=== PATIENT | female | born 1945 | race Caucasian/White ===

== ENCOUNTER 2021-06-01 12:19 | Inpatient (IN) ==
[~2021-06-01 12:19] MED LIST: Norepinephrine 4 MG/254 ML 0.9% NaCL IVC ONE
[2021-06-01] MEDS ORDERED: 0.9 % Sodium Chloride 1,000 ML ONE (12:25)
[2021-06-01] MEDS ORDERED: Isovue-370 500 ML BOTTLE IVP ONE (12:26)
[2021-06-01 12:43] LABS: Hematocrit 48.9 % (35.3-44.9); Hemoglobin 15.7 g/dL (11.5-15.4); Mean Corpuscular HGB Conc 32.1 g/dL (31.6-35.5); Mean Corpuscular Hemoglobin 30.6 pg (28.0-33.3); Mean Corpuscular Volume 95.3 fL (83.0-100.0); Mean Platelet Volume 10.1 fL (9.4-12.4); Platelet Count 212 K/mcL (140-400); Red Blood Count 5.13 M/mcL (3.82-4.97); Red Cell Distribution Width 14.6 % (11.5-14.5); White Blood Count 28.8 K/mcL (4.3-11.1)
[2021-06-01] MEDS: Norepinephrine 4 MG/254 ML IV.SOLN IVC SCH ×5 (12:46→23:38)
[2021-06-01 12:49] LABS: INR 1.5
[2021-06-01 12:52] LABS: Activated Partial Thrombo Time 30.7 Seconds (26.0-36.0)
[2021-06-01 12:59] LABS: Calcium 9.9 mg/dL (8.6-10.3); Potassium 3.7 mEq/L (3.5-5.1)
[2021-06-01 13:04] LABS: Troponin I 6.55 ng/mL (< 0.04)
[2021-06-01] MEDS ORDERED: *HR* Etomidate 20 MG/10 ML AMPUL IVP ONE (13:59)
[2021-06-01] MEDS ORDERED: *HR* Rocuronium Bromide 50 MG/5 ML VIAL IVP ONE (13:59)
[2021-06-01] MEDS ORDERED: Perflutren Lipid Microsphere 1.3 ML in 0.9 % Sodium Chloride 8.7 ML IVP PRN (14:35)
[2021-06-01] MEDS ORDERED: Naloxone 0.4 MG/ML INJ IVP PRN (15:37)
[2021-06-01] MEDS ORDERED: *HR* Heparin 5,000 UNIT/ML VIAL IVP ONE (15:37)
[2021-06-01] MEDS ORDERED: *HR* Heparin 5,000 UNIT/ML VIAL IVP PRN ×2 (15:37)
[2021-06-01] MEDS ORDERED: Artificial Tears SOLN 15 ML BOTTLE BOTH EYES PRN (15:37)
[2021-06-01] MEDS ORDERED: *HR* Norepinephrine 4 MG/4 ML VIAL IVC ONE (15:39)
[2021-06-01] MEDS ORDERED: 0.9 % Sodium Chloride 250 ML ONE (15:39)
[2021-06-01] MEDS ORDERED: 0.9 % Sodium Chloride 1,000 ML IVC SCH (15:45)
[2021-06-01] MEDS ORDERED: Vancomycin 1,750 MG/517.5 ML IV.SOLN IVPB ONE (15:55)
[2021-06-01] MEDS ORDERED: Piperacillin/Tazobactam 3.375 GM in 0.9 % Sodium Chloride Mini Bag 100 ML IVPB SCH (16:00)
[2021-06-01] MEDS ORDERED: Vancomycin (wt based) 1,000 MG VIAL IVPB SCH (16:00)
[2021-06-01] MEDS ORDERED: Budesonide/Formoterol 160/4.5 1 PUFF INH IH ONE (16:09)
[2021-06-01 16:19] LABS: ABG Base Excess -6 mEq/L (-2 to 3); ABG HCO3 20 mEq/L (21-27); ABG Oxygen Saturation 99 % (95-98); ABG PCO2 40 mmHg (35-45); ABG PO2 177 mmHg (85-104); ABG TCO2 21 mEq/L (20-26); Blood Gas Modality ASSIST CONTROL; Blood Gas VT 400 cc
[2021-06-01] MEDS: FentaNYL (PF) 1,000 MCG/100 ML IV.SOLN IVC SCH (16:57)
[2021-06-01] MEDS: 0.9 % Sodium Chloride 1,000 ML IVC SCH ×3 (17:07→20:20)
[2021-06-01] MEDS: Artificial Tears SOLN 15 ML BOTTLE BOTH EYES SCH ×2 (17:22→20:16)
[2021-06-01] MEDS: Piperacillin/Tazobactam 3.375 GM in 0.9 % Sodium Chloride Mini Bag 100 ML IVPB SCH (17:24)
[2021-06-01 17:36] LABS: Red Cell Distribution Width 15.1 % (11.5-14.5)
[2021-06-01] MEDS ORDERED: Ipratropium/Albuterol Neb 3 ML IH PRN (17:36)
[2021-06-01 17:37] LABS: Hematocrit 44.9 % (35.3-44.9); Hemoglobin 13.8 g/dL (11.5-15.4); Mean Corpuscular HGB Conc 30.7 g/dL (31.6-35.5); Mean Corpuscular Hemoglobin 29.8 pg (28.0-33.3); Mean Platelet Volume 10.5 fL (9.4-12.4); Platelet Count 196 K/mcL (140-400); Red Blood Count 4.63 M/mcL (3.82-4.97); White Blood Count 29.3 K/mcL (4.3-11.1)
[2021-06-01] MEDS: Pantoprazole 40 MG VIAL IVP SCH (17:53)
[2021-06-01 18:01] LABS: INR 1.4; Prothrombin Time 16.5 Seconds (9.4-12.1)
[2021-06-01 18:04] LABS: Activated Partial Thrombo Time 31.9 Seconds (26.0-36.0); Heparin anti-factor XA UFH < 0.04 IU/mL (0.30-0.70)
[2021-06-01 18:15] LABS: Albumin 3.3 g/dL (3.5-5.7); Albumin/Globulin Ratio 1.2 (1.1-2.2); Bilirubin,Direct 0.6 mg/dL (0.0-0.2); Bilirubin,Indirect 0.5 mg/dL (0.0-1.0); Bilirubin,Total 1.1 mg/dL (0.3-1.0); Globulin 2.8 g/dL (2.4-3.5); Total Protein 6.1 g/dL (6.4-8.9); Troponin I 8.94 ng/mL (< 0.04)
[2021-06-01] MEDS: Heparin 25,000UNIT/250ML 1/2NS 25,000 UNIT/250 ML IV.SOLN IVC SCH (18:52)
[2021-06-01] MEDS: Budesonide/Formoterol 160/4.5 1 PUFF INH IH SCH (19:30)
[2021-06-01] MEDS: Aspirin 81 MG TAB.CHEW PO SCH (20:17)
[2021-06-01] MEDS: Chlorhexidine Rinse 15 ML MOUTHWASH MM SCH (20:19)
[2021-06-01 20:45] LABS: Bacteria,Urine Few per hpf (None-Few); Bilirubin,Urine Negative (Negative); Blood,Urine Trace (Negative); Clarity,Urine Turbid (Clear); Color,Urine Yellow (Yellow); Glucose,Urine (UA) Normal (Normal); Ketones,Urine Negative (Negative); Leukocyte Esterase,Urine Large (Negative); Mucus,Urine Few per lpf (None-Few); Nitrite,Urine Negative (Negative); PH,Urine 7.5 pH Units (5.0-8.0); Protein,Urine 30 mg/dL (Neg-Trace); Specific Gravity,Urine 1.011 (1.010-1.025); Squamous Epithelial Cell,Urine Few per hpf (None-Few); Urobilinogen,Urine Normal (Normal); WBC,Urine TNTC per hpf (0-3)
[2021-06-01 21:18] LABS: Adenovirus Not Detected (Not Detect); Bordetella Pertussis Not Detected (Not Detect); Chlamydophila pneumoniae Not Detected (Not Detect); Coronavirus 229E Not Detected (Not Detect); Coronavirus HKU1 Not Detected (Not Detect); Coronavirus NL63 Not Detected (Not Detect); Coronavirus OC43 Not Detected (Not Detect); Human Metapneumovirus Not Detected (Not Detect); Human Rhinovirus/Enterovirus Not Detected (Not Detect); Influenza A Subtype 2009 H1 Not Detected (Not Detect); Influenza B Not Detected (Not Detect); Mycoplasma pneumoniae Not Detected (Not Detect); Parainfluenza Virus 1 Not Detected (Not Detect); Parainfluenza Virus 2 Not Detected (Not Detect); Parainfluenza Virus 3 Not Detected (Not Detect); Parainfluenza Virus 4 Not Detected (Not Detect); Respiratory Syncytial Virus Not Detected (Not Detect); SARS-CoV-2 Not Detected (Not Detect)
[2021-06-02] MEDS: Artificial Tears SOLN 15 ML BOTTLE BOTH EYES SCH ×4 (00:08→12:26)
[2021-06-02] MEDS: Norepinephrine 4 MG/254 ML IV.SOLN IVC SCH ×2 (02:37→05:00)
[2021-06-02] MEDS: Piperacillin/Tazobactam 3.375 GM in 0.9 % Sodium Chloride Mini Bag 100 ML IVPB SCH (03:08)
[2021-06-02] MEDS: Acetaminophen 325 MG TABLET PO PRN ×2 (03:08→09:20)
[2021-06-02 03:23] LABS: Hematocrit 48.7 % (35.3-44.9); Hemoglobin 14.6 g/dL (11.5-15.4); Mean Corpuscular Hemoglobin 29.8 pg (28.0-33.3); Mean Corpuscular Volume 99.4 fL (83.0-100.0); Mean Platelet Volume 10.9 fL (9.4-12.4); Nucleated Red Blood Cells 0.1 /100 WBC (0); Platelet Count 188 K/mcL (140-400); Red Cell Distribution Width 15.6 % (11.5-14.5); White Blood Count 25.6 K/mcL (4.3-11.1)
[2021-06-02] MEDS ORDERED: Albumin 25% 25gram/100mL 25 GM/100 ML IV.SOLN IVPB ONE (03:43)
[2021-06-02] MEDS ORDERED: 0.9 % Sodium Chloride 1,000 ML IVC SCH (03:45)
[2021-06-02 03:56] LABS: Lymphocytes # 2.6 K/mcL (0.6-4.6); Neutrophils # 17.4 K/mcL (1.6-8.9)
[2021-06-02 03:57] LABS: Large Platelets Present (Not Present); Platelet Estimate Normal (Normal); Reactive Lymphocytes Present (Not Present); Smudge Cells Present (Not Present)
[2021-06-02 04:30] LABS: ABG Base Excess -12 mEq/L (-2 to 3); ABG HCO3 16 mEq/L (21-27); ABG Oxygen Saturation 67 % (95-98); ABG PCO2 42 mmHg (35-45); ABG PH 7.18 pH Units (7.32-7.45); ABG PO2 43 mmHg (85-104); ABG TCO2 17 mEq/L (20-26); Blood Gas VT 450 cc
[2021-06-02 04:37] LABS: Albumin 3.2 g/dL (3.5-5.7); Albumin/Globulin Ratio 1.1 (1.1-2.2); Bilirubin,Direct 0.9 mg/dL (0.0-0.2); Bilirubin,Indirect 0.6 mg/dL (0.0-1.0); Bilirubin,Total 1.5 mg/dL (0.3-1.0); Calcium 7.9 mg/dL (8.6-10.3); Globulin 2.8 g/dL (2.4-3.5); Phosphorous 4.8 mg/dL (2.7-4.5); Potassium 4.9 mEq/L (3.5-5.1); Troponin I 17.26 ng/mL (< 0.04)
[2021-06-02 05:43] LABS: Blood Gas VT 450 cc; Mixed Venous Blood pCO2 45 mmHg (44-46); Mixed Venous Blood pH 7.22 pH Units (7.34-7.36); Mixed Venous Blood pO2 51 mmHg (35-45)
[2021-06-02] MEDS ORDERED: Vasopressin 40 UNIT in D5% in Water 100 ML IVC SCH (06:15)
[2021-06-02 06:27] LABS: Acinetobacter baumannii by PCR Not Detected (Not Detect); Candida albicans by PCR Not Detected (Not Detect); Candida glabrata by PCR Not Detected (Not Detect); Candida krusei by PCR Not Detected (Not Detect); Candida parapsilosis by PCR Not Detected (Not Detect); Candida tropicalis by PCR Not Detected (Not Detect); Enterobacter cloacae Cmplx PCR Not Detected (Not Detect); Enterococcus by PCR Not Detected (Not Detect); Escherichia coli by PCR DETECTED (Not Detect); Klebsiella oxytoca by PCR Not Detected (Not Detect); Klebsiella pneumoniae by PCR Not Detected (Not Detect); Proteus by PCR Not Detected (Not Detect); Pseudomonas aeruginosa by PCR Not Detected (Not Detect); Serratia marcescens by PCR Not Detected (Not Detect); Staphylococcus aureus by PCR Not Detected (Not Detect); Staphylococcus by PCR Not Detected (Not Detect); Streptococcus agalactiae(B)PCR Not Detected (Not Detect); Streptococcus by PCR Not Detected (Not Detect); Streptococcus pneumoniae PCR Not Detected (Not Detect); Streptococcus pyogenes (A) PCR Not Detected (Not Detect)
[2021-06-02] MEDS ORDERED: Sodium Bicarbonate 150 MEQ in Water for inj. (sterile) 1,000 ML IVC SCH (07:00)
[2021-06-02] MEDS: Norepinephrine 8 MG in 0.9 % Sodium Chloride 250 ML IVC SCH ×2 (07:30→12:24)
[2021-06-02] MEDS ORDERED: Hydrocortisone Sodium Succ 100 MG/2 ML VIAL IVP SCH (08:28)
[2021-06-02] MEDS: Pantoprazole 40 MG VIAL IVP SCH (08:43)
[2021-06-02] MEDS: Chlorhexidine Rinse 15 ML MOUTHWASH MM SCH (08:43)
[2021-06-02] MEDS ORDERED: *HR* Dextrose 50 % in Water (Vial) 50 ML VIAL ONE ×2 (08:48→12:34)
[2021-06-02] MEDS ORDERED: Acetaminophen 325 MG TABLET PO PRN (08:51)
[2021-06-02] MEDS: Aspirin 81 MG TAB.CHEW PO SCH (08:52)
[2021-06-02] MEDS ORDERED: 0.9 % Sodium Chloride 1,000 ML ONE ×2 (09:08→12:34)
[2021-06-02] MEDS: FentaNYL (PF) 1,000 MCG/100 ML IV.SOLN IVC SCH (09:24)
[2021-06-02] MEDS ORDERED: Heparin 1,000 UNITS/500 mL 500 ML ONE (09:24)
[2021-06-02] MEDS ORDERED: *HR* Dextrose 50 % in Water (Vial) 50 ML VIAL IVP ONE (09:30)
[2021-06-02] MEDS ORDERED: *HR* Heparin 5,000 UNIT/ML VIAL ONE (09:55)
[2021-06-02] MEDS ORDERED: *HR* Alteplase (Cathflo) 2 MG VIAL IVP PRN (10:35)
[2021-06-02] MEDS ORDERED: *HR* Heparin 5,000 UNIT/ML VIAL IVP PRN (10:35)
[2021-06-02] MEDS ORDERED: Phenylephrine 10 MG in 0.9 % Sodium Chloride 250 ML IVC SCH (10:45)
[2021-06-02] MEDS ORDERED: PrismaSATE BGK 4/2.5 5,000 ML CRRT SCH ×2 (10:45)
[2021-06-02] MEDS: Budesonide/Formoterol 160/4.5 1 PUFF INH IH SCH (10:58)
[2021-06-02] MEDS ORDERED: Albumin Human 5% 12.5 GM/250 ML IV.SOLN IVC SCH (11:00)
[2021-06-02 11:13] LABS: ABG Base Excess -11 mEq/L (-2 to 3); ABG HCO3 15 mEq/L (21-27); ABG Oxygen Saturation 99 % (95-98); ABG PCO2 34 mmHg (35-45); ABG PH 7.25 pH Units (7.32-7.45); ABG PO2 162 mmHg (85-104); ABG TCO2 16 mEq/L (20-26); Blood Gas VT 450 cc
[2021-06-02] MEDS: Phenylephrine 20 MG in 0.9 % Sodium Chloride 250 ML IVC SCH ×2 (11:19→13:27)
[2021-06-02] MEDS: Heparin 25,000UNIT/250ML 1/2NS 25,000 UNIT/250 ML IV.SOLN IVC SCH (12:00)
[2021-06-02] MEDS ORDERED: *HR* Dextrose 50 % in Water (Syg) 50 ML SYRINGE IVP ONE (12:29)
[2021-06-02] MEDS ORDERED: Acetaminophen 325 MG TABLET PO ONE (12:30)
[2021-06-02] MEDS ORDERED: 0.9 % Sodium Chloride 1,000 ML IVC ONE (12:30)
[2021-06-02] MEDS ORDERED: Phenylephrine 50 MG in 0.9 % Sodium Chloride 250 ML IVC SCH (13:00)
[2021-06-02 14:18] VITALS: BP 96/47
== END 2021-06-02 14:00 | disposition short-term general hospital (02) | DRG 871 ==
LOC: EMEROOARM 12:19 → ICNU 14:33
PROVIDERS: ADMIT Pediatrics; ATTEND Pediatrics